=== PATIENT | male | born 1975 | race Caucasian/White ===

== ENCOUNTER → 2019-05-30 13:21 | Outpatient (CLI) | payer MEDICARE, MEDICAID, SELFPAY ==
--- NOTE | 2019-05-30 13:30 | MRI_ITS ---
STUDY: MRI LEFT FOREFOOT WITHOUT CONTRAST REASON FOR EXAM: Pain in the fifth metatarsal head, evaluate for bursitis versus neuroma. TECHNIQUE: Standardized fat and water weighted pulse sequences were obtained in all 3 orthogonal planes. COMPARISON: None. FINDINGS: There is mild arthrosis of the metatarsophalangeal joint of the hallux with small marginal osteophytes, mild chondral thinning and small subchondral cysts of the first metatarsal head (inversion recovery sagittal images 3, 6). Normal tibial and fibular sesamoids, with normal sesamoids-first metatarsal articulations. Normal interphalangeal joint of the hallux. Normal proximal and visualized distal phalanges of the great toe. Normal medial and lateral heads of the flexor hallucis brevis tendons. Normal flexor and extensor hallucis longus tendons. Normal second through fifth metatarsophalangeal (MTP) joints. Normal interphalangeal joints of the second through fifth toes. Normal proximal, middle and distal phalanges of the second through fifth toes. Normal first through fourth intermetatarsal spaces. Normal flexor and extensor tendons of the second through fifth toes. Normal metatarsals without stress fracture. Normal intrinsic muscles of the forefoot. There is a pressure lesion at the plantar aspect of the fifth metatarsophalangeal joint (T1 sagittal images 24, 25) without adventitial bursitis. MRI/Lower Ext/No Jt/w/o IMPRESSION: Pressure lesion at the plantar aspect of the fifth metatarsophalangeal joint without adventitial bursitis. Mild arthrosis of the first metatarsophalangeal joint. No demonstrated neuroma. Electronically Signed: Chris Raya MD at 15:02 EDT Tel , Service support ,
== END ==
PROVIDERS: Family Provider Internal Medicine; PCP Internal Medicine
DX: M71.572 Other bursitis, not elsewhere classified, left ankle and foot (principal); M79.672 Pain in left foot
CPT/HCPCS: 73718

== ENCOUNTER → 2020-07-06 10:43 | Outpatient (CLI) | payer MEDICARE, MEDICAID, SELFPAY ==
[2020-06-16 09:13] VITALS: BMI 42.5
[2020-07-06 12:14] LABS: Absolute Lymphocyte Count 2.42 X10^3/uL (0.83-4.51); Absolute Neutrophil Count 4.5 X10^3/uL (2.0-7.7); Basophil# 0.04 X10^3/uL; Basophil% 0.5 % (0-1); Eosinophil# 0.07 X10^3/uL; Eosinophils% 0.9 % (0-5); Hematocrit 43.7 % (40-54); Hemoglobin 14.8 g/dL (13.0-16.5); Lymphocyte # 2.42 X10^3/ul (4.0); Lymphocyte % 32.5 % (19-41); Mean Corp Hgb Conc 33.9 g/dL (32-36); Mean Corpuscular Hgb 28.5 pg (27.0-32.0); Mean Platelet Vol. 9.6 fl (6.2-12.0); Monocyte# 0.43 X10^3/uL; Monocyte% 5.8 % (0-10); NRBC Flagged by Analyzer 0 % (0-5); Neutrophil # 4.46 X10^3/uL (2.7-7.7); Platelet Count 268 K/mm3 (150-450); RBC Distribution Width CV 12.9 % (11.6-14.6); RBC Distribution Width SD 39.5 fl (35.1-43.9); White Blood Count 7.4 K/mm3 (4.4-11.0)
[2020-07-06 12:53] LABS: Hemoglobin A1c 8.5 % (3.8-5.6)
[2020-07-06 13:05] LABS: ALB/GLOB Ratio 0.9 RATIO (0.9-2.4); AST(SGOT) 50 U/L (15-37); Alanine Aminotransfer ALT/SGPT 92 U/L (16-61); Albumin, Serum 3.5 g/dL (3.2-5.0); Alkaline Phosphatase 101 U/L (45-117); Anion Gap 6 (5-15); BUN 12 mg/dL (7-18); BUN/Creat Ratio 11.3 RATIO (10-20); Calcium,Total 9.4 mg/dL (8.5-10.1); Chloride 103 mmol/L (98-107); Cholesterol 152 mg/dL (200); Creatinine, Serum 1.06 mg/dL (0.70-1.30); EST Glomerular Filtration Rate 81 mL/min (>60); Est Glom Filt Rate - Afr Amer 98 mL/min (>60); Globulin 4.1 g/dL (2.2-4.2); Glucose 202 mg/dL (74-106); High Density Lipoprotein 45 mg/dL; Potassium 3.9 mmol/L (3.5-5.1); Protein, Total 7.6 g/dL (6.4-8.2); Sodium Level 137 mmol/L (136-145); Thyroid Stim Hormone (TSH) 3.97 uIU/mL (0.358-3.74); Triglycerides 139 mg/dL; Very Low Density Lipoprotein 28 mg/dL (5-40)
== END ==
PROVIDERS: PCP Internal Medicine; Referring Provider Nurse Practitioner Family; Visit Provider Nurse Practitioner Family
DX: R53.82 Chronic fatigue, unspecified (principal); M62.81 Muscle weakness (generalized); R68.82 Decreased libido; E66.9 Obesity, unspecified
CPT/HCPCS: 36415; 80053; 80061; 83036; 84443; 85025; 86140; 86141

== ENCOUNTER 2023-05-03 13:56 | Emergency (ER) | payer MEDICARE, MEDICAID, SELFPAY ==
[2023-05-03 13:58] VITALS: BP 165/82; PULSE 98; RESP 18; TEMP 36.3; O2SAT 96; BMI 39.9
--- NOTE | 2023-05-03 14:39 | EKG12_ITS ---
Test Reason : CP Blood Pressure : / mmHG Vent. Rate : 094 BPM Atrial Rate : 094 BPM P-R Int : 166 ms QRS Dur : 142 ms QT Int : 402 ms P-R-T Axes : 034 -11 014 degrees QTc Int : 502 ms Normal sinus rhythm Right bundle branch block Inferior infarct , age undetermined Abnormal ECG Confirmed by SABRINA VELAZQUEZ, WALTER ([id number]), development editor CRISTO BONILLA ([id number]) on 05/04/2023 1:28:15 PM Referred By: AR/BRAVO Confirmed By:WALTER BENNETT MD
--- NOTE | 2023-05-03 14:39 | RAD_ITS ---
STUDY: X-RAY CHEST REASON FOR EXAM: Male, 48 years old. Chest pain TECHNIQUE: Single AP portable view of the chest. COMPARISON: None. FINDINGS: EKG electrodes are seen. The lungs are clear and expanded. There is no demonstrated pleural abnormality. Normal size heart. Normal mediastinum and jarek. Normal visualized pulmonary arteries. Normal visualized aortic arch and descending thoracic aorta. Normal visualized thoracic spine. Normal visualized ribs, clavicles, and shoulders. There is no demonstrated abnormality of the visualized soft tissue structures of the upper abdomen. RAD/Chest 1 View (Portable) IMPRESSION: Normal x-ray examination of the chest. Electronically Signed: Gibran Lawton MD at 14:54 EDT ,
[2023-05-03 14:51] LABS: Absolute Lymphocyte Count 2.44 X10^3/uL (0.83-4.51); Absolute Neutrophil Count 6.8 X10^3/uL (2.0-7.7); Basophil# 0.05 X10^3/uL; Basophil% 0.5 % (0-1); Eosinophil# 0.06 X10^3/uL; Eosinophils% 0.6 % (0-5); Hematocrit 45.1 % (40-54); Hemoglobin 15.9 g/dL (13.0-16.5); Lymphocyte # 2.44 X10^3/ul (0.83-4.51); Lymphocyte % 24.6 % (19-41); Mean Corp Hgb Conc 35.3 g/dL (32-36); Mean Corpuscular Hgb 29.8 pg (27.0-32.0); Mean Corpuscular Volume 84.6 fL (80-94); Mean Platelet Vol. 9.7 fl (6.2-12.0); Monocyte# 0.59 X10^3/uL; Monocyte% 5.9 % (0-10); NRBC Flagged by Analyzer 0 % (0-5); Neutrophil # 6.75 X10^3/uL (2.7-7.7); Neutrophil % 68.1 % (47-70); Platelet Count 323 K/mm3 (150-450); RBC Distribution Width CV 13.5 % (11.6-14.6); RBC Distribution Width SD 41.7 fl (35.1-43.9); Red Blood Count 5.33 M/mm3 (4.6-6.2); White Blood Count 9.9 K/mm3 (4.4-11.0)
[2023-05-03 15:18] LABS: Anion Gap 8 (5-15); BUN 17 mg/dL (7-18); Calcium,Total 9.1 mg/dL (8.5-10.1); Chloride 107 mmol/L (98-107); Creatinine, Serum 1.21 mg/dL (0.70-1.30); EST Glomerular Filtration Rate 69 mL/min (>60); Est Glom Filt Rate - Afr Amer 83 mL/min (>60); Estimated Creatinine Clearance 81.25 ml/min; Glucose 210 mg/dL (74-106); Potassium 3.5 mmol/L (3.5-5.1); Sodium Level 138 mmol/L (136-145); Troponin-I HS (w/2H Reflex) 4 pg/mL (3.0-78.0)
--- NOTE | 2023-05-03 15:19 | ED.VIS.CHEST ---
HPI History of Present Illness Chief Complaint: Chest Pain Informant: patient Onset/Context/Timing Onset: Today Activity at onset: sudden Timing: Continuous Quality: Positive for Burning Location: Left Chest and - (Left axilla) Worsened By: Movement of Arm and Movement of Torso Relieved By: - (Abducting left arm) Associated Symptoms: Positive for Acid Reflux; Negative for Nausea, Vomiting, Diaphoresis, Dyspnea, Cough, Fever, Lightheadedness or Palpitations Narrative Narrative: Patient presents with chest pain that began today. Patient states it began while he was driving. Patient states it started in his left axilla and radiates down his left arm. Patient describes it as burning and tingling. Patient states it is worse with certain movements. Patient states it is better when he is able to abduct his left arm. Patient states the pain has been constant since this morning. Patient also admits to some acid reflux. CVD Risk Factors: Positive for Diabetes; Negative for Hypertension, Hypercholesterolemia, Family History 1' </=55 or Smoking PE Risk Factors: Negative for Recent Travel/Surgery, Recent Immobilization, Prior DVT or PE, Cancer or OCP + Smoking + >/=35 PFSH PFSH Medical History (Updated 05/03/23 @ 18:[address] Nadeem Álvarez, DO) Acute bronchitis, unspecified Acute sinusitis, unspecified COVID-19 Diabetes type 2, controlled Encounter for screening for COVID-19 Home Medications azithromycin 250 mg tablet See Rx Instructions PO .COMPLEX #6 tabs 05/23/22 [Rx Last Taken Unknown] benzonatate 100 mg capsule 200 mg (2 x 100 mg) PO TID PRN cough #30 caps 05/23/22 [Rx Last Taken Unknown] bupropion HCl 150 mg 24 hr tablet, extended release 150 mg PO 05/23/22 [History Last Taken Unknown] fluoxetine 20 mg capsule 20 mg PO 05/23/22 [History Last Taken Unknown] insulin glargine 100 unit/mL (3 mL) subcutaneous pen (Lantus Solostar U-100 Insulin) 16 unit subcut DAILY 05/23/22 [History Last Taken Unknown] metformin 500 mg tablet,extended release 24 hr 1,000 mg PO DAILY 05/23/22 [History Last Taken Unknown] Allergy/AdvReac Type Severity Reaction Status Date / Time No Known Allergies Allergy Verified 05/03/23 13:58 Surgical History (Updated 05/03/23 @ 15:[address] Nadeem Álvarez DO) Hx of arthroscopy S/P excision of lipoma Social History Smoking Status: Never smoker ROS ROS ED Constitutional Constitutional ED: Denies chills or fever(s) Eyes Eyes: Denies blurry vision or change in vision ENT ENT ED: Denies rhinorrhea or sore throat Cardiovascular Cardiovascular: Reports chest pain; Denies palpitations Respiratory/Chest Respiratory/Chest: Denies cough or dyspnea Gastrointestinal Gastrointestinal: Denies abdominal pain, nausea or vomiting Genitourinary Genitourinary ED: Denies dysuria or hematuria Musculoskeletal Musculoskeletal: Denies back pain or neck pain Integumentary Denies abscess or rash Neurologic Neurologic: Denies headache(s) or weakness Allergic/Immunologic Allergic/Immunologic ED: Denies mouth swelling or urticaria EXAM Physical Exam Const Vital Signs: 05/03/23 13:58 05/03/23 14:42 05/03/23 16:00 Temperature 97.4 F L Temperature Source Temporal Pulse Rate 98 Respiratory Rate 18 18 Blood Pressure 165/82 H Blood Pressure Mean 109 Pulse Ox 96 Oxygen Delivery Method Room Air Room Air 05/03/23 18:00 Temperature Temperature Source Pulse Rate 91 Respiratory Rate 18 Blood Pressure Blood Pressure Mean Pulse Ox 96 Oxygen Delivery Method Room Air Positive well nourished, well developed and obese General Appearance ED: well developed and NAD Nutritional Appearance: obese HEENT normocephalic and atraumatic Eyes PERRL and EOMs intact bilaterally Neck supple and no JVD Chest Wall Chest Narrative: There is mild tenderness palpation of the left axilla. There is no edema or ecchymosis. There is no bony crepitance or step-off. There is no subcutaneous emphysema noted. Resp normal respiratory effort and clear to auscultation bilaterally Effort and Inspection: Negative for respiratory distress Cardio regular rate, regular rhythm and no murmurs GI normal to inspection, nondistended, normoactive bowel sounds, soft to palpation, non-tender and non-distended Extremity normal to inspection General Extremety ED: Negative for edema or tenderness General Extremity: Negative for edema Neuro oriented x3, CN's II-XII intact bilaterally and no sensory deficits noted Sensorium / Orientation: awake and alert Motor Exam: strength 5/5 throughout Psych mental status grossly normal Heart Score History: Slightly/Non-Suspicious ECG: Nonspecific Repolarization Age: >45 - <65 years Risk Factors: 1 or 2 Risk Factors Score: 3 MDM MDM MDM Narrative Medical decision making narrative: Differential diagnosis includes cardiac dysrhythmia, cardiac ischemia, pulmonary embolism, musculoskeletal pain, anxiety, and peripheral neuropathy. EKG will be obtained to assess for cardiac dysrhythmia and cardiac ischemia. Chest x-ray will be obtained to assess for pneumonia and pneumothorax. D-dimer will be obtained to assess for pulmonary embolism. CBC will be obtained to assess for anemia and leukocytosis. Basic metabolic profile will be obtained to assess for electrolyte abnormality and renal function. High-sensitivity troponin will be obtained to assess for cardiac ischemia. 2-hour repeat high-sensitivity troponin will be obtained to assess for ongoing cardiac ischemia. Lab Data Attestation: I reviewed the patient's lab results. Lab results narrative: CBC was reviewed and was within normal limits. Basic metabolic profile was reviewed and was within normal limits except for an elevated glucose of 210. Initial high-sensitivity troponin was reviewed and was normal at 4. 2-hour repeat high-sensitivity troponin was reviewed and was normal at 4. D-dimer was reviewed and was less than 0.27. Labs: Laboratory Results - last 24 hr 05/03/23 05/03/23 14:11 17:27 WBC 9.9 RBC 5.33 Hgb 15.9 Hct 45.1 MCV 84.6 MCH 29.8 MCHC 35.3 RDW Std Deviation 41.7 RDW Coeff of Marquez 13.5 Plt Count 323 MPV 9.7 Immature Gran % (Auto) 0.300 Neut % (Auto) 68.1 Lymph % (Auto) 24.6 Gordon % (Auto) 5.9 Eos % (Auto) 0.6 Baso % (Auto) 0.5 Absolute Neuts (auto) 6.8 Absolute Lymphs (auto) 2.44 Nucleated RBC % 0 D-Dimer Quant (PE/DVT) < 0.27 L Sodium 138 Potassium 3.5 Chloride 107 Carbon Dioxide 23.0 Anion Gap 8 BUN 17 Creatinine 1.21 Estim Creat Clear Calc 81.25 Est GFR (MDRD) Af Amer 83 Est GFR (MDRD) Non-Af 69 BUN/Creatinine Ratio 14.0 Glucose 210 H Calcium 9.1 Troponin I High Sens 4 4 Radiography Diagnostic Testing: Clinical Impression(s) from Imaging Studies Chest X-Ray 05/03/23 14:39 IMPRESSION: Normal x-ray examination of the chest. Electronically Signed: Gibran Lawton MD at 14:54 EDT , Portable 1 view chest x-ray was obtained. On my independent interpretation, lung tracy are clear. There is normal cardiac silhouette. Bony thorax is normal. There is no acute process noted. Radiologist also interpreted the x-ray and agrees. EKG Initial EKG: Attestation: I personally reviewed and interpreted this EKG as follows: Interpretation: Sinus Rhythm (94) and No Acute Injury Pattern Comments: EKG was obtained. On my independent interpretation, it showed a normal sinus rhythm with a rate of 94. PA interval was within normal limits at 166 ms. QRS interval was slightly prolonged at 142 ms. QTc interval was slightly prolonged at 502 ms.. There is borderline left axis deviation at -11. There are no acute ST or T wave changes. Prior EKG tracings: not available for review Prior: No Prior Treatment and Re-Evaluation :: Patient was feeling better on reevaluation. Patient was advised of his findings. Patient was advised that this could be musculoskeletal in etiology. Patient was instructed to follow-up with his primary care physician in 5 to 7 days for further evaluation. Patient understood and was agreeable with the plan. All questions were answered. Discharge Plan Triage Chief Complaint: Chest Pain ED Provider: Nadeem Álvarez Dx/Rx/DC Orders Clinical Impression: Diabetes type 2, controlled, Chest pain Instructions: ED Chest Pain, Uncertain Cause Prescriptions: No Action metformin 500 mg tablet extended release 24 hr 1,000 mg PO DAILY bupropion HCl 150 mg tablet extended release 24 hr 150 mg PO fluoxetine 20 mg capsule 20 mg PO insulin glargine [Lantus Solostar U-100 Insulin] 100 unit/mL (3 mL) insulin pen 16 unit subcut DAILY azithromycin 250 mg tablet See Rx Instructions PO .COMPLEX Qty: 6 0RF Rx Instructions: take 500 mg today (day 1), then 250 mg for 4 days (days 2-5) PO benzonatate 100 mg capsule 200 mg PO TID PRN (Reason: cough) Qty: 30 0RF Primary Care Provider: DEONTE FELIX Referrals: Pauline Nix MD [Med Staff - [facility] [employer]] - 5-7 Days DEONTE FELIX CRNP [Primary Care Provider] - 5-7 Days Disposition Disposition: Home, Self Care
[2023-05-03 16:00] VITALS: RESP 18
[2023-05-03 16:16] LABS: D-Dimer Quantitative (DVT/PE) < 0.27 FEU/ug/m (0.27-0.49)
[2023-05-03 16:45] LABS: Reflex Troponin-HS? (from REC) Y
[2023-05-03 17:58] LABS: Troponin-I HS 4 pg/mL (3.0-78.0)
[2023-05-03 18:00] VITALS: PULSE 91; RESP 18; O2SAT 96
== END 2023-05-03 18:51 | disposition home or self-care (01) ==
PROVIDERS: Emergency Provider Emergency Medicine; PCP Nurse Practitioner; Visit Provider Emergency Medicine
DX: R07.9 Chest pain, unspecified (principal); E11.9 Type 2 diabetes mellitus without complications; Z79.4 Long term (current) use of insulin; Z79.84 Long term (current) use of oral hypoglycemic drugs
CPT/HCPCS: 71045; 80048; 84484; 85025; 85379; 93005; 99284; A4216

== ENCOUNTER → 2023-09-19 | Outpatient (CLI) | payer MEDICARE, MEDICAID, SELFPAY ==
--- NOTE | 2023-09-19 08:55 | MRI_ITS ---
STUDY: MRI RIGHT SHOULDER REASON FOR EXAM: Male, 48 years old. Rule out cuff tear, injury with dog, pain, weakness. TECHNIQUE: Standardized fat and water weighted pulse sequences were obtained in all 3 orthogonal planes. COMPARISON: Right shoulder radiographs dated 08/28/2023. FINDINGS: There is mild supraspinatus and subscapularis tendinosis. There is a 5 mm focus of low signal along the bursal surface of the distal infraspinatus tendon (coronal T2 series 5 image 10), compatible with calcification seen with calcific tendinitis. Normal teres minor tendon. Normal supraspinatus muscle. Normal infraspinatus muscle. Normal subscapularis muscle. Normal teres minor muscle. There is a tear of the superior glenoid labrum (coronal T2 series 5 images 12-14). Normal glenohumeral articulation. Normal humeral head and visualized proximal humerus. Normal intracapsular long biceps tendon. Normal rotator interval. There is hypertrophic acromioclavicular arthrosis, with inferior osteophyte formation, with mild effacement of the supraspinatus myotendinous junction (coronal T2 series 5 images 17-19). There is a Type II morphology (curved), with a neutral orientation. There is no subacromial-subdeltoid bursal fluid. Normal visualized coracohumeral and coracoacromial ligaments. Normal quadrilateral space. Normal axillary space. Normal deltoid muscle. Normal trapezius muscle. MRI/Upper Ext Joint Only(Routine) IMPRESSION: Mild supraspinatus and subscapularis tendinosis. Calcific tendinitis of the distal infraspinatus tendon. Hypertrophic acromioclavicular arthrosis, with inferior osteophyte formation, with mild effacement of the supraspinatus myotendinous junction. Superior glenoid labral tear. Electronically Signed: Jamey Fitzpatrick MD at 12:13 EST ,
== END | disposition home or self-care (01) ==
LOC: MRI 08:07
PROVIDERS: PCP Nurse Practitioner; Referring Provider Orthopaedic Surgery Sports Medicine; Visit Provider Orthopaedic Surgery Sports Medicine
DX: M25.511 Pain in right shoulder (principal)
CPT/HCPCS: 73221

== ENCOUNTER 2023-10-12 10:28 | Emergency (ER) | payer MEDICARE, MEDICAID, SELFPAY ==
[2023-10-12 10:29] VITALS: BP 157/96; PULSE 84; RESP 16; TEMP 35.9; O2SAT 98; BMI 38.5
--- NOTE | 2023-10-12 10:46 | ED.RN ---
PT REPORTS PAIN TO BALL OF LEFT FOOT. WARM, REDDENED, TENDER TO TOUCH.
--- NOTE | 2023-10-12 10:53 | RAD_ITS ---
STUDY: X-RAY - LEFT FOOT CLINICAL: Male, 48 years old. Injury/Pain. TECHNIQUE: 3 views of the left foot. COMPARISON: None. FINDINGS: Normal talus, calcaneus, and tarsal bones. Normal visualized subtalar, talonavicular, calcaneocuboid, tarsal and tarsometatarsal articulations. Normal metatarsi. Normal metatarsophalangeal joint of the great toe. Normal tibial and fibular sesamoid bones. Normal interphalangeal joint of the great toe. Normal phalanges of the great toe. Normal second through fifth metatarsophalangeal joints. Normal interphalangeal joints and phalanges of the lesser toes. There is a 7 mm smooth ossified structure along the expected course of the distal Achilles tendon, probably the sequelae of an old avulsion injury. The soft tissue structures are otherwise unremarkable. There is no demonstrated acute fracture. RAD/Foot min 3 Views IMPRESSION: No acute fracture. Electronically Signed: Jamey Fitzpatrick MD at 11:14 EST ,
--- NOTE | 2023-10-12 11:27 | EDS_ITS ---
HPI History of Present Illness Chief Complaint: Lower Extremity Injury Detail of Chief Complaint: Pain plantar medial aspect of the foot. Informant: patient Onset/Context/Timing Onset: Today Context: Sudden Onset Timing: Continuous Quality of Pain: Aching Location: In the proximity of the first MTP joint. Current Severity: Mild Maximum Severity: Moderate Worsened by: Palpation and walking Relieved by: Elevation and rest Associated Symptoms Associated Symptoms: Negative for Parasthesia, Weakness or Loss of Funtion Narrative Narrative: Patient is a 48-year-old male with history of type 2 diabetes who presents with atraumatic left foot pain that he localizes over the first metatarsal/first MTP joint. He denies history of gout or pseudogout. He is not on a thiazide diuretic. He denies fever, chills night sweats. He denies any known injury. 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 He reports his diabetes under good control with an A1c of approximately 6. He denies paresthesia, anesthesia or motor weakness. He has not noted any redness or swelling. He denies symptoms of claudication. Prior similar symptoms: No Recent Illness/Hospitalization: No PFSH PFS Medical History Acute bronchitis, unspecified Acute sinusitis, unspecified Arthrosis of right acromioclavicular joint COVID-19 Diabetes type 2, controlled Encounter for screening for COVID-19 Impingement of right shoulder Right shoulder pain SLAP lesion of right shoulder Home Medications bupropion HCl 150 mg 24 hr tablet, extended release 150 mg PO 05/23/22 [History Last Taken Unknown] insulin glargine 100 unit/mL (3 mL) subcutaneous pen (Lantus Solostar U-100 Insulin) 16 unit subcut DAILY 05/23/22 [History Last Taken Unknown] metformin 500 mg tablet,extended release 24 hr 1,000 mg PO DAILY 05/23/22 [History Last Taken Unknown] semaglutide 1 mg/dose (4 mg/3 mL) subcutaneous pen injector (Ozempic) 1 mg subcut QWEEK 08/28/23 [History Last Taken Unknown] naproxen 500 mg tablet 500 mg PO BID #14 tabs 10/12/23 [Rx Last Taken Unknown] Allergy/AdvReac Type Severity Reaction Status Date / Time No Known Allergies Allergy Verified 10/12/23 10:29 Surgical History Hx of arthroscopy S/P excision of lipoma Social History Smoking Status: Never smoker ROS ROS ED Constitutional Constitutional ED: Denies chills, fever(s), subjective, sweats or weight loss Musculoskeletal Musculoskeletal: Denies arthralgias or myalgias Integumentary Denies abscess, Abrasions or rash Neurologic Neurologic: Denies paresthesias or weakness Hematologic/Lymphatic Hematologic/Lymphatic: Denies easy bleeding or easy bruising EXAM Physical Exam Const Vital Signs: 10/12/23 10:29 Temperature 96.7 F L Temperature Source Temporal Pulse Rate 84 Respiratory Rate 16 Blood Pressure 157/96 H Blood Pressure Mean 116 Pulse Ox 98 Oxygen Delivery Method Room Air Positive well nourished, well developed and obese General Appearance ED: well developed and NAD Nutritional Appearance: obese HEENT Reports moist mucous membranes normocephalic and atraumatic Eyes PERRL Eyes Narrative: Extract muscle intact. Sclera is anicteric. Resp normal respiratory effort Cardio regular rate and regular rhythm Extremity normal to inspection and full ROM Extremity Narrative: With passive plantar and dorsiflexion of the left great toe he complains of pain on the plantar surface. There is pain outpatient over the plantar surface. Th ere is pain from the proximity of the MTP joint of the left great toe to the calcaneus. There is no point tenderness of the calcaneus. There is no pain ovation over the lateral or medial malleolus. DP pulses palpable. There is no evidence of vascular compromise. There is no bruising noted. There is no erythema, warmth or induration. There is minimal discomfort with movement of the great toe passively. General Extremety ED: Yes weight-bearing difficulty General Extremity: weight-bearing difficulty Neuro oriented x3 and CN's II-XII intact bilaterally Sensorium / Orientation: alert Psych mental status grossly normal Skin no wounds Lesions: no lesions Rashes: no rashes MDM MDM MDM Narrative Medical decision making narrative: Differential diagnosis would include plantar fasciitis since he does have increased pain with forced passive dorsiflexion. Also need to consider crystal induced arthritis. This may represent a contusion since he is a online health and fitness coach and may have injured it not realized it. Will obtain x-ray to evaluate for any bony abnormality. Radiography Chest X-Ray - ED: Read by ED Physician (Three-view x-ray of the foot was obtained and independently reviewed interpreted by me as negative. There is no soft tissue swelling. There is no abnormality of the MTP joint. There is no evidence of fracture.) Diagnostic Testing: Clinical Impression(s) from Imaging Studies Foot X-Ray 10/12/23 10:53 IMPRESSION: No acute fracture. Electronically Signed: Jamey Fitzpatrick MD at 11:14 EST , Management Discussion w/another healthcare provider: [employer] (Spoke with Dr. Felix Faust on-call podiatry. Plan is walking boot and short course of NSAIDs.) Discharge Plan Triage Chief Complaint: Lower Extremity Injury ED Provider: Wesley Yeboah Dx/Rx/DC Orders Clinical Impression: Plantar fasciitis of left foot, Diabetes type 2, controlled, Elevated blood- pressure reading without diagnosis of hypertension Instructions: ED Hypertension, To Be Confirmed, ED Plantar Fasciitis Prescriptions: New naproxen 500 mg tablet 500 mg PO BID Qty: 14 0RF No Action metformin 500 mg tablet extended release 24 hr 1,000 mg PO DAILY bupropion HCl 150 mg tablet extended release 24 hr 150 mg PO insulin glargine [Lantus Solostar U-100 Insulin] 100 unit/mL (3 mL) insulin pen 16 unit subcut DAILY Ozempic 1 mg/dose (4 mg/3 mL) pen injector 1 mg subcut QWEEK Primary Care Provider: DEONTE FELIX Referrals: Finn Faust DPM [Med Staff - Active Staff] - As soon as possible DEONTE FELIX CRNP [Primary Care Provider] - Disposition Disposition: Home, Self Care
== END 2023-10-12 13:56 | disposition home or self-care (01) ==
PROVIDERS: Emergency Provider Emergency Medicine; PCP Nurse Practitioner; Visit Provider Emergency Medicine
DX: M72.2 Plantar fascial fibromatosis (principal); E11.9 Type 2 diabetes mellitus without complications; Z79.4 Long term (current) use of insulin; R03.0 Elevated blood-pressure reading, without diagnosis of hypertension; Z79.85 Long-term (current) use of injectable non-insulin antidiabetic drugs
CPT/HCPCS: 73630; 99283

== ENCOUNTER 2023-11-01 08:44 | Emergency (ER) | payer MEDICARE, MEDICAID, SELFPAY ==
[2023-11-01 08:44] VITALS: BP 161/92; PULSE 95; RESP 16; TEMP 36.6; O2SAT 97; BMI 40.4
--- NOTE | 2023-11-01 09:06 | CT_ITS ---
STUDY: CT ABDOMEN AND PELVIS WITH CONTRAST REASON FOR EXAM: Male, 48 years old. LLQ Pain RADIATION DOSAGE (If Supplied By Facility): CTDIvol = ( 17.06 ) mGy, DLP = ( 1457.68 ) mGycm TECHNIQUE: IV 100mL Isovue-300 was administered. Transaxial images were obtained from the dome of the diaphragm to the symphysis pubis in the arterial, nephrographic and excretory phases. Multiplanar coronal and sagittal images were reformatted. Individualized Dose Optimization Techniques Were Used For This CT. COMPARISON: No relevant prior comparison study available FINDINGS: The visualized lung bases are unremarkable. The visualized portions of the heart are within normal limits. Mild hepatic steatosis. No focal lesion is seen. Normal gallbladder and extrahepatic biliary system. Normal spleen. Normal pancreas. Normal bilateral adrenal glands. Normal visualized stomach. Normal small intestine. Fecal retention. Sigmoid diverticulosis without evidence of acute diverticulitis. The appendix is visualized and appears normal. Normal abdominal aorta. No retroperitoneal adenopathy. Normal right kidney. Normal left kidney. Normal urinary bladder. Diastases of the anterior rectus muscles without definite hernia. Mild degenerative changes of the spine. CT/Abdomen/Pelvis W IV Cont ONLY IMPRESSION: 1. Diverticulosis of the sigmoid colon without evidence of acute diverticulitis. 2. Otherwise no focal acute inflammatory process. Electronically Signed: Robert Plasencia MD at 10:42 EST ,
--- NOTE | 2023-11-01 09:07 | EDS_ITS ---
HPI History of Present Illness Chief Complaint: Abd Pain Informant: patient Narrative Narrative: 48-year-old male presenting to the emergency room with chief complaint of abdominal pain. Patient states a month ago began to have some discomfort in the left lower quadrant. 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 He states that he is taken some time off from wrestling and seems to continue to. He notes a history of diverticulitis but states its never gone on this long. He notes some radiation down towards his left testicle. He denies any swelling masses/bulges in the scrotum. Or abdominal wall. He denies any rashes. No fevers. He does note some constipation. Discomfort seems to be worse with stretching and movement. No prior history of kidney stones. He states that his urine occasionally has an abnormal smell to it. [facility] Medical History Acute bronchitis, unspecified Acute sinusitis, unspecified Arthrosis of right acromioclavicular joint COVID-19 Diabetes type 2, controlled Encounter for screening for COVID-19 Impingement of right shoulder Right shoulder pain SLAP lesion of right shoulder Home Medications bupropion HCl 150 mg 24 hr tablet, extended release 150 mg PO 05/23/22 [History Last Taken Unknown] insulin glargine 100 unit/mL (3 mL) subcutaneous pen (Lantus Solostar U-100 Insulin) 16 unit subcut DAILY 05/23/22 [History Last Taken Unknown] metformin 500 mg tablet,extended release 24 hr 1,000 mg PO DAILY 05/23/22 [History Last Taken Unknown] semaglutide 1 mg/dose (4 mg/3 mL) subcutaneous pen injector (Ozempic) 1 mg subcut QWEEK 08/28/23 [History Last Taken Unknown] naproxen 500 mg tablet 500 mg PO BID #14 tabs 10/12/23 [Rx Last Taken Unknown] Allergy/AdvReac Type Severity Reaction Status Date / Time No Known Allergies Allergy Verified 11/01/23 08:47 Surgical History Hx of arthroscopy S/P excision of lipoma Social History Smoking Status: Never smoker ROS ROS ED Constitutional Constitutional ED: Denies chills, fever(s) or weight loss Eyes Eyes: Denies change in vision or diplopia ENT ENT ED: Denies ear pain, rhinorrhea or sore throat Cardiovascular Cardiovascular: Denies chest pain, orthopnea, palpitations or racing heartbeat Respiratory/Chest Respiratory/Chest: Denies cough, dyspnea or orthopnea Gastrointestinal Gastrointestinal: Reports abdominal pain and constipation; Denies diarrhea, nausea or vomiting Genitourinary Genitourinary ED: Reports other Details: Left testicular ache. No scrotal swelling or tenderness. ; Denies dysuria, hematuria or urinary frequency Musculoskeletal Musculoskeletal: Denies arthralgias or myalgias Integumentary Denies abscess or rash Neurologic Neurologic: Denies headache(s) or weakness Psychiatric Psychiatric: Denies anxiety, depression, suicidal ideation or suicidal thoughts Endocrine Endocrinology: Denies polydipsia, polyphagia or polyuria Allergic/Immunologic Allergic/Immunologic ED: Denies mouth swelling, tongue swelling or urticaria EXAM Physical Exam Const Vital Signs: 11/01/23 08:44 11/01/23 12:57 Temperature 97.9 F Temperature Source Temporal Pulse Rate 95 88 Respiratory Rate 16 14 Blood Pressure 161/92 H 131/83 H Blood Pressure Mean 115 99 Pulse Ox 97 96 Oxygen Delivery Method Room Air Positive well nourished and well developed General Appearance ED: well developed HEENT Reports normocephalic, head/scalp atraumatic and moist mucous membranes Eyes PERRL and EOMs intact bilaterally Neck no lymphadenopathy, supple and no JVD Resp normal respiratory effort and clear to auscultation bilaterally Cardio regular rate, regular rhythm and no murmurs GI GI Narrative: Patient has tenderness to palpation the left lower quadrant just above the inguinal ligament on the left. I do not appreciate mass or abdominal wall defect. There is no rash. Inspection: Negative for abdominal distention Auscultation: normoactive bowel sounds Palpation: soft and tender LLQ; Negative for guarding or rebound tenderness present Narrative: Genitalia exam performed in the presence of male nurse (Bartolo Keating). I do not appreciate any testicular tenderness swelling or masses. I do not appreciate hernia with Valsalva. No abdominal wall hernia felt. No rashes. Back/Spine no CVA tenderness and normal ROM Extremity normal to inspection General Extremety ED: Negative for edema General Extremity: Negative for edema Neuro oriented x3 and CN's II-XII intact bilaterally Sensorium / Orientation: alert Motor Exam: strength 5/5 throughout Psych mental status grossly normal Mood & Affect: Negative for depressed or tearful Skin no rashes or lesions noted and no wounds MDM MDM MDM Narrative Medical decision making narrative: Basic blood work stink showed a white count of 7.9 hemoglobin 15.2. Creatinine 1.13 and a glucose of 274. Urinalysis shows no overt infection. Out of concern for diverticular disease or abdominal wall hematoma a CT of the abdomen pelvis was ordered. This demonstrated diverticulosis but no obvious obstructive uropathy noted acute diverticulitis/colitis. No intra-abdominal abscess no abdominal wall hematoma and no obvious hernia which supports the physical exam. Because of the testicular discomfort a testicular ultrasound was obtained. This demonstrates slightly increased flow to the left epididymis. He was not really tender on examination but there is a possibility that this is a lingering infection. However I still would feel that abdominal wall strain would be higher on the differential given how tender he is just above the inguinal ligament on the left. Patient was advised of the above findings. Recommend primary care and possibly surgical follow-up. He notes understanding. Anti- inflammatories for discomfort. Return if worsening or concerns History & Record Review Discussion w/independent historian: Patient Lab Data Attestation: I reviewed the patient's lab results. Labs: Laboratory Results - last 24 hr 11/01/23 11/01/23 09:05 09:12 WBC 7.9 RBC 5.39 Hgb 15.2 Hct 44.8 MCV 83.1 MCH 28.2 MCHC 33.9 RDW Std Deviation 38.5 RDW Coeff of Marquez 12.8 Plt Count 276 MPV 9.5 Immature Gran % (Auto) 0.100 Neut % (Auto) 67.5 Lymph % (Auto) 23.6 [place] % (Auto) 7.6 Eos % (Auto) 0.8 Baso % (Auto) 0.4 Absolute Neuts (auto) 5.3 Absolute Lymphs (auto) 1.87 Nucleated RBC % 0 Sodium 135 L Potassium 3.8 Chloride 107 Carbon Dioxide 27.0 Anion Gap 1 L BUN 15 Creatinine 1.13 Estim Creat Clear Calc 112.99 Est GFR (MDRD) Af Amer 90 Est GFR (MDRD) Non-Af 74 BUN/Creatinine Ratio 13.3 Glucose 274 H Calcium 9.4 Urine Color Yellow Urine Clarity Clear Urine pH 6.0 Ur Specific [place] 1.010 Urine Protein 15 H Urine Glucose (UA) 1000 H Urine Ketones Negative Urine Occult Blood Negative Urine Nitrite Negative Urine Bilirubin Negative Urine Urobilinogen Normal Ur Leukocyte Esterase Negative Urine RBC 0 SEEN Urine WBC 0 SEEN Ur Squamous Epith Cells 0 SEEN Urine Bacteria 0 SEEN Urine Mucus 0 SEEN Radiography Diagnostic Testing: Clinical Impression(s) from Imaging Studies Abdomen/Pelvis CT 11/01/23 09:06 IMPRESSION: 1. Diverticulosis of the sigmoid colon without evidence of acute diverticulitis. 2. Otherwise no focal acute inflammatory process. Electronically Signed: Robert Plasencia MD at 10:42 EST , Testicular Ultrasound 11/01/23 11:02 IMPRESSION: 1. No evidence of testicular torsion at the time this examination was performed. 2. Slightly increased flow to the left epididymis compared to the right side which may reflect epididymitis. 3. Mild to moderate bilateral hydroceles. 4. Left varicocele. Electronically Signed: Robert Plasencia MD at 12:23 EST , Discharge Plan Triage Chief Complaint: Abd Pain ED Provider: Valeriano Chavis Dx/Rx/DC Orders Clinical Impression: Abdominal pain, Strain of abdominal wall, Epididymitis Instructions: ED Epididymitis, ED Muscle Strain, Abdomen Prescriptions: No Action metformin 500 mg tablet extended release 24 hr 1,000 mg PO DAILY bupropion HCl 150 mg tablet extended release 24 hr 150 mg PO insulin glargine [Lantus Solostar U-100 Insulin] 100 unit/mL (3 mL) insulin pen 16 unit subcut DAILY Ozempic 1 mg/dose (4 mg/3 mL) pen injector 1 mg subcut QWEEK naproxen 500 mg tablet 500 mg PO BID Qty: 14 0RF Primary Care Provider: DEONTE FELIX Referrals: Renee Quigley MD [Med Staff - Active Staff] - As soon as possible (for surgical evaluation of left abdominal pain ) DEONTE FELIX CRNP [Primary Care Provider] - As soon as possible Disposition Disposition: Home, Self Care Discharge Date/Time: 11/01/23 12:57
[2023-11-01 09:17] LABS: Bacteria 0 SEEN /hpf (None Seen); Mucous, Urine 0 SEEN /hpf (<or=2+); Red Blood Cells-Urine 0 SEEN /hpf (0-5); Squamous Epithelial Cells - UA 0 SEEN /hpf (0-5); White Blood Cells 0 SEEN /hpf (0-5)
[2023-11-01 09:21] LABS: Absolute Lymphocyte Count 1.87 X10^3/uL (0.83-4.51); Absolute Neutrophil Count 5.3 X10^3/uL (2.0-7.7); Basophil# 0.03 X10^3/uL; Basophil% 0.4 % (0-1); Eosinophil# 0.06 X10^3/uL; Eosinophils% 0.8 % (0-5); Hematocrit 44.8 % (40-54); Hemoglobin 15.2 g/dL (13.0-16.5); Lymphocyte # 1.87 X10^3/ul (0.83-4.51); Lymphocyte % 23.6 % (19-41); Mean Corp Hgb Conc 33.9 g/dL (32-36); Mean Corpuscular Hgb 28.2 pg (27.0-32.0); Mean Corpuscular Volume 83.1 fL (80-94); Mean Platelet Vol. 9.5 fl (6.2-12.0); Monocyte% 7.6 % (0-10); NRBC Flagged by Analyzer 0 % (0-5); Neutrophil # 5.34 X10^3/uL (2.7-7.7); Neutrophil % 67.5 % (47-70); Platelet Count 276 K/mm3 (150-450); RBC Distribution Width CV 12.8 % (11.6-14.6); RBC Distribution Width SD 38.5 fl (35.1-43.9); Red Blood Count 5.39 M/mm3 (4.6-6.2); White Blood Count 7.9 K/mm3 (4.4-11.0)
[2023-11-01 09:23] LABS: Color, Urine Yellow (Yellow); Glucose, Dipstick 1000 mg/dl (Normal); Ketone-Dipstick Negative (Negative); Leukocyte Esterase-Dipstick Negative /ul (Negative); Nitrite-Dipstick Negative (Negative); Occult Blood-Urine Negative /ul (Negative); Protein-Dipstick 15 mg/dl (Negative); Urine Bilirubin Dipstick Negative (Negative); Urine Clarity Clear (Clear); Urine Urobilinogen Normal (Normal)
[2023-11-01 09:28] LABS: Anion Gap 1 (5-15); BUN 15 mg/dL (7-18); BUN/Creat Ratio 13.3 RATIO (10-20); Calcium,Total 9.4 mg/dL (8.5-10.1); Chloride 107 mmol/L (98-107); Creatinine, Serum 1.13 mg/dL (0.70-1.30); EST Glomerular Filtration Rate 74 mL/min (>60); Est Glom Filt Rate - Afr Amer 90 mL/min (>60); Estimated Creatinine Clearance 112.99 ml/min; Glucose 274 mg/dL (74-106); Potassium 3.8 mmol/L (3.5-5.1); Sodium Level 135 mmol/L (136-145)
--- OUTSIDE RECORDS SUMMARY | 2023-11-01 09:42 | XMS RPT_ITS | CCD ---
Author Name Unknown Address [address] [place] [address] Organization [facility] Care Team Providers Care Chiller Technician Name Role Phone TERESO COOPER Unavailable Unavailable Marissa Vital Unavailable Unavailable [facility] Unavailable Unavailable Deborah Painting Unavailable Unavailable Deborah Painting Unavailable Unavailable NO REFERRING Unavailable Unavailable Deborah aPinting Unavailable Unavailable MARISSA ARTIS Attending Unavailable RENU SHARPE Primary Care Unavailable FRANCI ELIAS Attending Unavailable RENU SHARPE Primary Care Unavailable Renu Sharpe Primary Care Provider Medications Completed/Discontinued Medications Medication Drug Class(es) Dates Sig (Normalized) Sig (Original) anastrozole 1 mg oral tablet (1 source) Aromatase Inhibitor Start: 06-21-2019 take 1 tablet by mouth two times weekly anastrozole (ARIMIDEX) 1 mg tablet Take 1 tablet by mouth two times a week. 10 tablet 1 06/21/2019 Active Problems Active Problems Problem Classification Problem Date Documented Date Episodic/Chronic Abdominal pain (1 source) Pelvic and perineal pain; Translations: [Pelvic pain in male] Onset: 10-10-2022 Episodic Anxiety disorders (1 source) Posttraumatic stress disorder; Translations: [Post-traumatic stress disorder, unspecified] Onset: 02-26-2018 02-26-2018 Chronic Miscellaneous mental health disorders (1 source) Nightmares associated with chronic post-traumatic stress disorder; Translations: [Nightmare disorder] Onset: 02-26-2018 02-26-2018 Chronic Mood disorders (1 source) Recurrent major depression in partial remission; Translations: [Major depressive disorder, recurrent, in partial remission] Onset: 02-26-2018 02-26-2018 Chronic Other endocrine disorders (1 source) Male hypogonadism; Translations: [Testicular hypofunction] Onset: 06-19-2017 06-19-2017 Chronic Other nutritional; endocrine; and metabolic disorders (1 source) Morbid (severe) obesity due to excess calories; Translations: [MORBID SEVERE OBES D/T E] Onset: 03-14-2017 Chronic Residual codes; unclassified (1 source) Obstructive sleep apnea syndrome; Translations: [Obstructive sleep apnea (adult) (pediatric)] Onset: 02-26-2018 08-31-2020 Chronic Sprains and strains (1 source) Strain of muscle, fascia and tendon of lower back, initial encounter; Translations: [Strain of lumbar region, initial encounter] Onset: 10-10-2022 Episodic Unclassified (1 source) Obstructive sleep apnea (adult) (pediatric); Translations: [Obstructive sleep apnea (adult) (pediatric)] Onset: 02-26-2018 Chronic Past or Other Problems Problem Classification Problem Date Documented Da te Episodic/Chronic Diabetes mellitus without complication (1 source) Hyperglycemia, unspecified; Translations: [Hyperglycemia] Onset: 01-17-2022 Episodic Other and unspecified benign neoplasm (1 source) Benign lipomatous neoplasm, unspecified; Translations: [BENIGN LIPOMATOUS NEOPLA] Onset: 03-14-2017 Episodic Other and unspecified benign neoplasm (1 source) Lipoma of trunk; Translations: [Benign lipomatous neoplasm of skin and subcutaneous tissue of trunk] Onset: 03-21-2017 03-21-2017 Episodic Other skin disorders (2 sources) Localized swelling, mass and lump, trunk; Translations: [LOCALIZD SWELLING MASS] Onset: 03-14-2017 Episodic Syncope (1 source) Near syncope; Translations: [Syncope and collapse] Onset: 08-02-2010 08-02-2010 Episodic Results Test Name Value Interpretation Reference Range Facil ity Encounters Encounter Date Encounter Type Care Provider Facility Start: 10-28-2022 End: 10-28-2022 Subsequent hospital visit by physician [facility] Procedures Date Procedure Procedure Detail Performing Clinician Start: 03-14-2017 EXC BACK TOMI DEEP 5 CM/> Deborah Painting Plan of Treatment Date Care Activity Detail Author Start: 10-10-2025 DIABETES SCREEN DIABETES SCREEN [facility] Start: 06-09-2022 Influenza vaccination INFLUENZA (#1) [facility] Start: 06-05-2022 LIPID SCREEN LIPID SCREEN [facility] Start: 2022 COLOGUARD (FIT-DNA) COLOGUARD (FIT-D NA) [facility] Start: 2022 Colonoscopy COLONOSCOPY [facility] Start: 2022 COLORECTAL CANCER SCREENING COLORECTAL CANCER SCREENING [facility] Start: [address] COLONOGRAPHY [facility] Start: 2022 FECAL OCCULT BLOOD FECAL OCCULT BLOO D [facility] Start: 2022 SIGMOIDOSCOPY SIGMOIDOSCOPY [facility] Start: 1996 Urine microalbumin profile DTAP,TDAP ,TD (1 - Tdap) [facility] Start: 1995 HEPATITIS C SCREENING HEPATITIS C SC REENING [facility] Start: 1995 HIV SCREENING HIV SCREENING [facility] Start: 1977 COVID-19 VACCINE (#1) COVID-19 VACCI NE (#1) [facility] Start: 1977 HEPATITIS B (1 of 3 - 3-dose series) HEPATITIS B (1 of 3 - 3-dose series) [facility] Payers Date Payer Category Payer Medicare [id number] 2022 Medicare AETNA MEDICARE A ETNA MEDICARE PPO [id number] 2022-Present [phone] [address] [place] [address] PPO [id number] 2021 Medicaid [id number] 2021 Medicaid [facility] MEDICAID [id number] 2021-Present [phone] [address] [place] [address] Medicaid [id number] 2017 Unknown Unknown [id number] Social History Date Type Detail Facility Start: 06-02-2017 Tobacco smoking stat us NVIS Never smoked tobacco [facility] Work Phone: Start: 06-02-2017 Tobacco use and exposure Smokeless tobacco non-user [facility] Work Phone: Start: 10-10-2022 Alcohol intake Ex-drinker (finding) [facility] Start: 1975 Sex Assigned At Not on file [facility] History of Present illness Narrative 10-28-2022 Paul Patterson - 10/28/2022 2:15 PM EST Note Date & Type Note Facility 10-28-2022 History of Presen t illness Narrative Radiology Service Progress Note PATIENT NAME: Francisco Cadena DATE OF SERVICE: October 28, 2022 TIME: 1:21 PM PATIENT IDENTITY VERIFICATION COMPLETED USING TWO (2) IDENTIFIERS: Name and Date of confirmed by patient verbally. FALL SCREENING: Has the patient had 2 falls in the last year or 1 fall with injury or currently using an Ambulatory Assistive Device (Walker, Cane, Wheelchair, Crutches, etc.)? No PATIENT GENDER DATA: Male PATIENT RELEVANT IMPLANT DATA REVIEWED: Not Applicable RADIOLOGY DEPARTMENT: General X-ray: Exam(s) Completed: Spine X-Ray(s): Cervical AP / LAT PERIPHERAL IV DATA: Not applicable SIGNED BY: Paul Patterson October 28, 2022 1:21 PM documented in this encounter [facility] History of Past illness Narrative 09-23-2015 Note Date & Type Note Facility documented as of this encounter (statuses as of 10/29/2022) [facility] Summary Purpose Family History No Family History Records FoundNo Family History Records FoundNo Family History Records FoundNo Family History Records FoundNo Family History Records Found Advance Directives No Advanced Directives Records FoundNo Advanced Directives Records FoundNo Advanced Directives Records FoundNo Advanced Directives Records FoundNo Advanced Directives Records Found Additional Source Comments (unrecognized sect ion and content) No Status Records FoundNo Status Records FoundNo Status Records FoundNo Status Records FoundNo Status Records Found INFORMATION SOURCE (unrecogn ized section and content) DATE CREATED AUTHOR AUTHOR'S ORGANIZ ATION 04/04/2018 [facility] DATE CREATED AUTHOR AUTHOR'S ORGANIZ ATION 04/04/2018 [facility] DATE CREATED AUTHOR AUTHOR'S ORGANIZ ATION 01/18/2022 [facility] DATE CREATED AUTHOR AUTHOR'S ORGANIZ ATION 10/18/2022 [facility] Source Comments (unrecognize d section and content) In the event this informatio n is protected by the Federal Confidentiality of Alcohol and Drug Abuse Patient Records regulations: The Federal rules restrict any use of the information to criminally investigate or prosecute any alcohol or drug abuse patient.[facility] Care Teams (unrecognized sec tion and content) FOR RECORDS PERTAINING TO PATIENTS WHO ARE OR HAVE BEEN ENROLLED IN A CHEMICAL DEPENDENCY/SUBSTANCEABUSE PROGRAM, SOME INFORMATION MAY BE OMITTED. This clinical summary was aggregated from multiple sources. Caution should be exercised in using it in the provision of clinical care. This summary normalizes information from multiple sources, and as a consequence, information in this document may materially change the coding, format and clinical context of patient data. In addition, data may be omitted in some cases. CLINICAL DECISIONS SHOULD BE BASED ON THE PRIMARY CLINICAL RECORDS. [facility] [employer] provides no warranty or guarantee of the accuracy or completeness of information in this document.
--- NOTE | 2023-11-01 11:02 | US_ITS ---
INDICATION: pain EXAMINATION: Ultrasound US Scrotum (Contents) TECHNIQUE: Realtime ultrasound of the testicles was performed with grayscale, Color Doppler and spectral Doppler analysis. COMPARISON: No relevant prior comparison study available FINDINGS: RIGHT: TESTIS: The right testicle measures 4.5 x 4.2 x 2.4 cm. Normal in size and echotexture, without focal lesion. COLOR DOPPLER: Normal arterial flow present in the testicle with monophasic waveforms. EPIDIDYMIS: Normal in size and echotexture, without focal lesion measuring about 7 mm. [Normal color Doppler flow pattern in the epididymis. HYDROCELE: Mild to moderate hydrocele. VARICOCELE: None. LEFT: TESTIS: The left testicle measures 4.5 x 2.7 x 2.6 cm. Normal in size and echotexture, without focal lesion. COLOR DOPPLER: Normal arterial flow present in the testicle with monophasic waveforms. EPIDIDYMIS: Normal in size and echotexture, without focal lesion measuring about 1.2 cm. [Slightly increased flow to the left epididymis compared to the right side. HYDROCELE: Mild to moderate hydrocele. VARICOCELE: Varicocele is seen. US/Testicular with Arterial Flow IMPRESSION: 1. No evidence of testicular torsion at the time this examination was performed. 2. Slightly increased flow to the left epididymis compared to the right side which may reflect epididymitis. 3. Mild to moderate bilateral hydroceles. 4. Left varicocele. Electronically Signed: Robert Plasencia MD at 12:23 EST ,
[2023-11-01 12:57] VITALS: BP 131/83; PULSE 88; RESP 14; O2SAT 96
== END 2023-11-01 12:57 | disposition home or self-care (01) ==
PROVIDERS: Emergency Provider Emergency Medicine; PCP Nurse Practitioner; Visit Provider Emergency Medicine
DX: S39.011A Strain of muscle, fascia and tendon of abdomen, initial encounter (principal); E11.9 Type 2 diabetes mellitus without complications; Z79.4 Long term (current) use of insulin; N45.1 Epididymitis; R10.32 Left lower quadrant pain; Z79.84 Long term (current) use of oral hypoglycemic drugs; X58.XXXA Exposure to other specified factors, initial encounter; Y93.72 Activity, wrestling
CPT/HCPCS: 74177; 76870; 80048; 81001; 85025; 93976; 99283; Q9967; A4216

== ENCOUNTER 2023-12-06 08:07 | Day surgery (SDC) | payer MEDICARE, MEDICAID, SELFPAY ==
[2023-12-06] VITALS (10 sets, daily range): BP systolic 113–150; BP diastolic 75–96; PULSE 57–95; RESP 14–16; TEMP 36.3–36.7; O2SAT 92–97; BMI 39.6
--- OUTSIDE RECORDS SUMMARY | 2023-12-06 08:29 | XMS RPT_ITS | CCD ---
Author Name Unknown Address [address] [place] [address] Organization [facility] Care Team Providers Care Control Panel Operator Name Role Phone TERESO COOPER Unavailable Unavailable Marissa Vital Unavailable Unavailable [facility] Unavailable Unavailable Deborah Painting Unavailable Unavailable Deborah Painting Unavailable Unavailable NO REFERRING Unavailable Unavailable Deborah Painting Unavailable Unavailable MARISSA ARTIS Attending Unavailable RENU SHARPE Primary Care Unavailable FRANCI ELIAS Attending Unavailable RENU SHARPE Primary Care Unavailable Renu Sharpe Primary Care Provider [phone] Medications Completed/Discontinued Medications Medication Drug Class(es) Dates [...] Author Start: 10-10-2025 DIABETES SCREEN DIABETES SCREEN [facility] Start: 06-09-2022 Influenza vaccination INFLUENZA (#1) [facility] Start: 06-05-2022 LIPID SCREEN LIPID SCREEN [facility] Start: 2022 COLOGUARD (FIT-DNA) COLOGUARD (FIT-D NA) [facility] Start: 2022 Colonoscopy COLONOSCOPY [facility] Start: 2022 COLORECTAL CANCER SCREENING COLORECTAL CANCER SCREENING [facility] Start: [address] COLONOGRAPHY [facility] Start: 2022 FECAL OCCULT BLOOD FECAL OCCULT BLOO D [facility] Start: 2022 SIGMOIDOSCOPY SIGMOIDOSCOPY [facility] Start: 1996 Urine microalbumin profile DTAP,TDAP ,TD (1 - Tdap) [facility] Start: 1995 HEPATITIS C SCREENING HEPATITIS C SC REENING [facility] Start: 1995 HIV SCREENING HIV SCREENING [facility] Start: 1977 COVID-19 VACCINE (#1) COVID-19 VACCI NE (#1) [facility] Start: 1977 HEPATITIS B (1 of 3 - 3-dose series) HEPATITIS B (1 of 3 - 3-dose series) [facility] Payers Date Payer Category Payer Medicare [id number] 2022 Medicare AETNA MEDICARE A ETNA MEDICARE PPO [id number] 2022-Present [phone] [address] [place] [address] PPO [id number] 2021 Medicaid [id number] 2021 Medicaid [facility] MEDICAID [id number] 2021-Present [phone] [place] [address] Medicaid [id number] 2017 Unknown Unknown [id number] Social History Date Type Detail Facility Start: 06-02-2017 Tobacco smoking stat us UTIS Never smoked tobacco [facility] Work Phone: Start: 06-02-2017 Tobacco use and exposure Smokeless tobacco non-user [facility] Work Phone: Start: 10-10-2022 Alcohol intake Ex-drinker (finding) [facility] Start: 1975 Sex Assigned At Not on file [facility] History of Present illness Narrative 10-28-2022 Paul [...] 2022 1:21 PM documented in this encounter [facility] History of Past illness Narrative 09-23-2015 Note Date & Type Note Facility documented as of this encounter (statuses as of 10/29/2022) [facility] Summary Purpose Family History No Family [...] DATE CREATED AUTHOR AUTHOR'S ORGANIZ ATION 04/04/2018 [facility] DATE CREATED AUTHOR AUTHOR'S ORGANIZ ATION 04/04/2018 [facility] DATE CREATED AUTHOR AUTHOR'S ORGANIZ ATION 01/18/2022 [facility] DATE CREATED AUTHOR AUTHOR'S ORGANIZ ATION 10/18/2022 [facility] Source Comments (unrecognize d section and content) In the event this informatio n is protected by the Federal Confidentiality of Alcohol and Drug Abuse Patient Records regulations: The Federal rules restrict any use of the information to criminally investigate or prosecute any alcohol or drug abuse patient.[facility] Care Teams (unrecognized sec tion and [...] BE BASED ON THE PRIMARY CLINICAL RECORDS. [facility] [employer] provides no warranty or guarantee of the accuracy or completeness of information in this document.
[2023-12-06] MEDS: Lactated Ringers 1,000 ML 15 ML IV (09:02)
--- NOTE | 2023-12-06 10:41 | HP.PCM_ITS ---
HPI - General HPI Narrative KATIA WELLS, is a 48 M who presents of right shoulder arthroscopy, subacromial decompression, biceps tenodesis, distal clavicle excision. No changes to history and physical exam. Shoulder marked. Risks alternatives benefits discussed as well as postop instructions and narcotic counseling. Patient understands wishes to proceed. MR#: [id number] Acct: [id number] Name: KATIA WELLS Rep #: [id number] : 1975 Provider: Dr. Uriel Henry MD Age/Sex: 48/M Location[place] [facility] [place] Status: Signed Intake Vital Signs 08/28/2313:07 09/21/2313:10 Height 6 ft 6 ft Weight: 294 lb 6 oz BMI 39.9 Intake Visit Reasons: RIGHT SHOULDER Accompanied by: Self Is patient in pain?: Yes (6-7) Allergies No Known Allergies Allergy (Verified 09/22/23 14:02) Medications bupropion HCl 150 mg 24 hr tablet, extended release 150 mg PO 05/23/22 [History Confirmed 09/22/23] insulin glargine 100 unit/mL (3 mL) subcutaneous pen (Lantus Solostar U-100 Insulin) 16 unit subcut DAILY 05/23/22 [History Confirmed 09/22/23] metformin 500 mg tablet,extended release 24 hr 1,000 mg PO DAILY 05/23/22 [History Confirmed 09/22/23] semaglutide 1 mg/dose (4 mg/3 mL) subcutaneous pen injector (Ozempic) 1 mg subcut QWEEK 08/28/23 [History Confirmed 09/22/23] PFSH Medical History Acute bronchitis, unspecified Acute sinusitis, unspecified Arthrosis of right acromioclavicular joint COVID-19 Diabetes type 2, controlled Encounter for screening for COVID-19 Impingement of right shoulder Right shoulder pain SLAP lesion of right shoulder Surgical History Hx of arthroscopy S/P excision of lipoma Social History Smoking Status: Never smoker HPI RIGHT SHOULDER Details: This documentation accurately reflects the service provided and the decisions made by me, Dr. Uriel Henry MD 09/22/23 8390. Part of today?s visit was documented by [ ], acting as scribe. KATIA WELLS is a 48 year old M here today for FU R shoulder MRI. Patient continues to experience pain and clicking and popping of the shoulder. 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 Most of this pain is anterolaterally radiating down the upper aspect of the proximal humerus. Ortho Exam General General: Yes no acute distress Neurologic: Yes alert and Yes oriented x3 Psychologic: Yes reasonable and appropriate Right Shoulder Skin/Wound: Yes CDI, No ecchymosis, No erythema and No swelling Testing: Positive Hawkin's, Neer's, Speed's, TTP Biceps, TTP AC Joint, AROM- External Rotation at side 0-60, empty can, Delta, cross arm and belly press normal; Negative Drop Arm or scapular winging SHOULDER: normal motor and sens to ax nerve, and MRU and AIN/PIN active fe 165, passive the same strength fe 4+, er 5/5 pain at ACJ Supplemental Info [facility] Imaging Services [address] [place] [address] Upper Ext Joint Only(Routine) MR#: [id number] Acct: [id number] Name: KATIA WELLS Rep #: [id number] : 1975 M 48 From: Jamey Fitzpatrick MD PCP: DEONTE FELIX Status: REG CLI Study: Upper Ext Joint Only(Routine) Date of Exam: 09/19/23 Exam# [id number] Ordering Dr: Ureil Henry MD STUDY: MRI RIGHT SHOULDER REASON FOR EXAM: Male, 48 years old. Rule out cuff tear, injury with dog, pain, weakness. TECHNIQUE: Standardized fat and water weighted pulse sequences were obtained in all 3 orthogonal planes. COMPARISON: Right shoulder radiographs dated 08/28/2023. FINDINGS: There is mild supraspinatus and subscapularis tendinosis. There is a 5 mm focus of low signal along the bursal surface of the distal infraspinatus tendon (coronal T2 series 5 image 10), compatible with calcification seen with calcific tendinitis. Normal teres minor tendon. Normal supraspinatus muscle. Normal infraspinatus muscle. Normal subscapularis muscle. Normal teres minor muscle. There is a tear of the superior glenoid labrum (coronal T2 series 5 images 12-14). Normal glenohumeral articulation. Normal humeral head and visualized proximal humerus. Normal intracapsular long biceps tendon. Normal rotator interval. There is hypertrophic acromioclavicular arthrosis, with inferior osteophyte formation, with mild effacement of the supraspinatus myotendinous junction (coronal T2 series 5 images 17-19). There is a Type II morphology (curved), with a neutral orientation. There is no subacromial-subdeltoid bursal fluid. Normal visualized coracohumeral and coracoacromial ligaments. Normal quadrilateral space. Normal axillary space. Normal deltoid muscle. Normal trapezius muscle. MRI/Upper Ext Joint Only(Routine) IMPRESSION: Mild supraspinatus and subscapularis tendinosis. Calcific tendinitis of the distal infraspinatus tendon. Hypertrophic acromioclavicular arthrosis, with inferior osteophyte formation, with mild effacement of the supraspinatus myotendinous junction. Superior glenoid labral tear. Electronically Signed: Jamey Fitzpatrick MD at 12:13 EST , Coding Level of Care Code Off vis,est,level 4 Diagnoses Right shoulder pain M25.511 Impingement of right shoulder M25.811 Arthrosis of right acromioclavicular joint M19.011 SLAP lesion of right shoulder S43.431A Assessment and Plan Assessment and Plan (1) Right shoulder pain: Status: Acute Plan: 48 M with MRI evidence of SLAP, ACJ arthrosis and impingement. Patient continues to experience pain. I explained to him his MRI findings showed him the pictures. He has shoulder impingement syndrome as well as pain at the AC j oint chronic positive cross body adduction test and positive Delta's test as well as MRI findings of a SLAP tear with history of large over 100 pound dog pulling on his arm. I explained to him his options rest ice doing nothing anti- inflammatories physical therapy cortisone injections or surgery. In my hands that would be in the form of right shoulder arthroscopy, subacromial decompression, biceps tenodesis, distal clavicle excision. Typically with SLAP tears going ahead with the repair would result in unacceptably high rates of stiffness in a patient over 40 and my interpretation of the literature. He would like to go ahead with surgery. He does have an elevated hemoglobin A1c at some point he does have diabetes non-smoker but I will still get him to see his family doctor for preoperative clearance. Pros and cons risks and benefits were discussed with the patient including but not limited to infection, pain, stiffness, bleeding, damage to surrounding structures, neurovascular injury, recurrence or retear, failure or wear of hardware or fixation, instability, fracture, deep vein thrombosis and pulmonary embolism, anesthetic risks, , patient dissatisfaction, need for further surgery and other risks. Patient understood and wished to proceed with surgery, and signed the informed consent documentation. (2) Impingement of right shoulder: Status: Acute (3) Arthrosis of right acromioclavicular joint: Status: Acute (4) SLAP lesion of right shoulder: Status: Acute [facility] Medical History (Updated 11/21/23 @ 13:31 by Dagmar Pascual) Acute bronchitis, unspecified Acute sinusitis, unspecified Anxiety Arthritis Arthrosis of right acromioclavicular joint BiPAP (biphasic positive airway pressure) dependence COVID-19 Depression Diabetes type 2, controlled Dietary restriction Encounter for screening for COVID-19 Impingement of right shoulder Injury of head and neck Loss of hearing Migraine headache PTSD (post-traumatic stress disorder) Right shoulder pain Shortness of breath on exertion SLAP lesion of right shoulder Wears glasses Home Medications bupropion HCl 150 mg 24 hr tablet, extended release 150 mg PO DAILY 08/15/22 [History Last Taken Unknown] metformin 500 mg tablet,extended release 24 hr 1,000 mg PO DAILY 05/23/22 [History Last Taken Unknown] semaglutide 1 mg/dose (4 mg/3 mL) subcutaneous pen injector (Ozempic) 1 mg subcut QWEEK 08/28/23 [History Last Taken Unknown] empagliflozin 25 mg tablet 25 mg PO DAILY 11/14/23 [History Last Taken Unknown] fluoxetine 60 mg tablet 60 mg PO DAILY 11/14/23 [History Last Taken Unknown] Allergy/AdvReac Type Severity Reaction Status Date / Time No Known Allergies Allergy Verified 12/06/23 08:31 Surgical History Hx of arthroscopy S/P excision of lipoma Social History (Updated 11/14/23 @ 13:37 by Genesis Machuca) Smoking Status: Never smoker alcohol intake: never substance use type: does not use Vital Signs Vital Signs Vital Signs: 12/06/23 08:36 12/06/23 08:36 Temperature 98.1 F Temperature Source Temporal Pulse Rate 81 Respiratory Rate 16 Respiratory Pattern Normal Blood Pressure 129/82 H Blood Pressure Mean 97 Blood Pressure Source Monitor Blood Pressure Position Semi-Fowlers Blood Pressure Location Left Arm Pulse Ox 97 Oxygen Delivery Method Room Air Weight Weight: 284 lb 6.341 oz Body Mass Index (BMI) 39.6
[2023-12-06] MEDS: Epinephrine (1 mg/ml) 1 MG/ML VIAL (11:13)
[2023-12-06 11:54] LABS: Bedside Glucose 142 mg/dL (74-106)
[2023-12-06] MEDS: Cefazolin 3 GM in 0.9% Normal Saline (100mL Bag) 100 ML IV (12:25)
--- NOTE | 2023-12-06 13:56 | PCM.OPRPT ---
Problems Associated Problem List Diagnoses (1) SLAP lesion of right shoulder: (2) Arthrosis of right acromioclavicular joint: (3) Impingement of right shoulder: (4) Right shoulder pain: Report of Operation Date of Procedure: 12/06/23 Pre-Operative Diagnosis: Right shoulder impingement syndrome SLAP tear and AC joint arthrosis Post-Operative Diagnosis: Same Surgery/Procedure Performed:: Right shoulder arthroscopy subacromial decompression distal clavicle excision separate open incision and subpectoral biceps tenodesis separate open incision Surgeon: Uriel Henry Type of Anesthesia: Block,Regional and General Anesthesiologist: Randy Lebron Estimated Blood Loss (mL): 30 Description of Procedure: Patient brought the operating room theater. Placed supine on the table. Administered general anesthetic. 3 g IV Ancef administered prior to the start of the case. Transferred right side up lateral decubitus beanbag positioner axillary roll placed SCDs on the legs. All bony prominences padded. Upper extremity prepped and draped in the usual sterile treatments. Preoperative timeout prior to starting the case to confirm the site patient and the surgery. 10 pounds of inline traction with the arm in 30 degrees of abduction was used. Began by inserting the arthroscope through a standard posterior portal. Did a diagnostic arthroscopy. Rotator cuff tendons were normal. Minor amount grade 1 cartilage fraying glenoid humeral head appeared normal. The joint was extremely tight. Biceps had a type II SLAP tear. No loose bodies axillary recess appeared normal. No other significant findings. I made an inside-out spinal needle localized portal through the rotator interval just posterior to the biceps tendon. Performed a biceps tenotomy for future plan of biceps tenodesis. Then took pictures throughout the case saved them on system. Placed the scope in the subacromial space. There is moderate amount of subacromial bursitis inflammatory nature. I performed a bursectomy to the gutters. I performed a subacromial decompression this was extremely tight at the anterolateral aspect of the acromion I was barely able to get a elijah instrument into the subacromial space after I flatten this down to flat margins as best as I was able to; again this was extremely tight and had quite a bit of downsloping anterolaterally. I removed about 4mm of undersurface acromion to flat margins. I originally planned to do the distal clavicle excision arthroscopically but again this was extremely tight and the patient had very large anatomy and impossible to get there with the arthroscope. I took pictures throughout I probed the rotator cuff tendon this was intact. I removed the arthroscope. I made a longitudinal incision overlying the anterior aspect of the AC joint. Dissection down through skin and subcutaneous tissue achieved meticulous hemostasis. Incised along the anterior aspect of the AC joint ensuring to keep the posterior and superior ligaments intact. I did a distal clavicle excision using a high-speed saw with the handpiece for about 3 mm small wafer of bone I was able to get the suction tip as well as my little finger inside there for a good space at the AC joint without impingement. Wound thoroughly irrigated. Next I turned my attention to the biceps tenodesis. I made a small longitudinal 1.5 inch incision centered on the upper proximal medial aspect of the humerus overlying the long head of biceps tendon. Carried the dissection down through skin and subcutaneous tissue to meticulous hemostasis. I did this just distal to the pectoralis major insertion and medial to the short head of the biceps. Identified long head biceps deliver this to the incision. I shorten the tendon. I used the Arthrex loop suture looped around and a luggage tag configuration and passed the suture distally from anterior to posterior to lock configuration using the tension tight Arthrex button with #5 braided suture. I placed the suture through the button. I drilled unicortical hole irrigated any bone debris. I passed the button into the unicortical hole and delivered the tendon to bone. This knotless configuration and solid repair sutures cut short. This was irrigated. Incisions closed with #2-0 Vicryl and skin with 3-0 Monocryl. Skin cleaned 5 by dressing followed application of Steri-Strips Adaptic 4 x 4 gauze ABD pads and tape and abduction pillow sling. Patient woken up from a general anesthetic transferred off the operating table taken postanesthetic care unit in stable addition. All sponge needle answer counts were correct. cpt 28516,69292, 17910? Complications none Admit VTE Documentation VTE Present on Admission: No VTE Mechan Device Prophylaxis: SCD's VTE Pharm Prophylaxis ordered?: No Reason prophylaxis not ordered:: Treatment Not Indicated Procedures Musculoskeletal 20xxx-29xxx: Other Procedure See Report
--- NOTE | 2023-12-06 14:08 | DCINST_ITS ---
Discharge Instructions Diet Discharge Diet: No restrictions Activity Ice area for (Minutes): 10 Lifting Restrictions: pendulums only, no lifting over 1 pound, ok for hand use, Additional Activity Instructions:: remove sling 4x/day Dressing / Incision Call your doctor if your incision/area has: Continuous Slow Oozing, Sudden Increased Bleeding, Increased Pain/ Swelling, Increased Redness, Foul Smelling Discharge and Swelling at the incision site Remove Dressing in: leave in place till F/U Follow Up Care Please Follow Up With: Uriel Henry MD When: 2 days Test Results: Test results from this visit will be discussed in further detail at your follow- up appointment, if applicable. Discharge Plan Admission Attending Provider: Uriel Henyr Primary Care Provider: DEONTE FELIX Instructions Patient Instructions: After Shoulder Arthroscopy Discharge Orders/Prescriptions Prescriptions: New oxycodone-acetaminophen [Percocet] 5-325 mg tablet 1 - 2 tab PO Q4H MDD 6 PRN (Reason: pain) 5 Days Qty: 30 0RF No Action metformin 500 mg tablet extended release 24 hr 1,000 mg PO DAILY bupropion HCl 150 mg tablet extended release 24 hr 150 mg PO DAILY Ozempic 1 mg/dose (4 mg/3 mL) pen injector 1 mg subcut QWEEK fluoxetine 60 mg tablet 60 mg PO DAILY empagliflozin 25 mg tablet 25 mg PO DAILY Referrals / Follow Up: Uriel Henry MD [Med Staff - Active Staff] - DEONTE FELIX CRNP [Primary Care Provider] - Disposition Disposition (needs filled in before D/C Order can be placed): Home, Self Care
[2023-12-06 14:35] LABS: Bedside Glucose 154 mg/dL (74-106)
[2023-12-06] MEDS: Oxycodone/Apap 5/325 Tablet PO (15:42)
== END 2023-12-06 16:34 | disposition home or self-care (01) ==
LOC: SDC 08:08 → AC 08:09
PROVIDERS: PCP Nurse Practitioner; Referring Provider Orthopaedic Surgery Sports Medicine; Visit Provider Orthopaedic Surgery Sports Medicine
PROC: (CPT 29805; principal; 2023-12-06 09:50)
DX: M75.41 Impingement syndrome of right shoulder (principal); E11.9 Type 2 diabetes mellitus without complications; S43.431A Superior glenoid labrum lesion of right shoulder, initial encounter; M19.011 Primary osteoarthritis, right shoulder; M75.80 Other shoulder lesions, unspecified shoulder; M77.9 Enthesopathy, unspecified; Z86.16 Personal history of COVID-19; Z79.84 Long term (current) use of oral hypoglycemic drugs; Z87.19 Personal history of other diseases of the digestive system; F32.A Depression, unspecified
CPT/HCPCS: 29826; 23120; 23430; 01716; 64450; 82962; C1713; J7120; J2405

== ENCOUNTER 2024-02-23 08:00 | Outpatient (RCR) | payer MEDICARE, MEDICAID, SELFPAY ==
--- NOTE | 2023-12-21 11:11 | HP.PTEVAL_ITS ---
Patient's Visit Information Visit Information Visit Information: KATIA WELLS is a 48 year old M referred to Physical Therapy by Dr. Uriel Henry MD with a diagnosis of R SLAP lesion, SAD and Biceps Tenodesis (DOS: 12/06/23). Date of Evaluation: 12/21/23 Physical Therapist: Mayo Salazar DPT Visit Plan Frequency: 3x /Week Duration: 2 Months Plan: -PROM and AAROM to FULL shoulder ROM by 01/04/24 -grade 1 and 2 post GH joint mobs -scar mobilization and STM to pecs, UT, neck, delt, and biceps -AROM, isometrics, and LIGHT band work starting 01/09/2024 -Progress scapular, bicep, delt, and IR/ER strengthening as tolerated AFTER 01/14/2023 Pt would like to return to working out, should be appropriate 2-3 months out from sx (based on symptoms), ensure strengthening becomes more gym related near end phases of rehab to provide appropriate challenge of strength (HEP: AAROM in all directions, scap retraction) Subjective Subjective: Pt presents to PT s/p R shoulder surgery (Sub acromial decompression and biceps tenodesis). Last February, pt was helping his dog into car and she slipped, he then had instant burning in entire R arm, very sore afterwards and eventually had surgery on 12/06/23. 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 Pt is able to sleep on L side instead of sleeping on his back, pretty sore and stiff, but he feels ROM and pain have decreased with time. Pt had tingling all down arm early on post-op, but has subsided, still having some discomfort in proximal bicep and shoulder. Dr. Henry gave pt a few low level shoulder exercises (pendulums) and pt feels they help. Able to perform all ADLs indep, but with increase time, having issues reaching back behind to flush toilet. Pt wants to get back to mowing, landscaping, and doing house projects. He also wants to return to working out and being able to confidently carry things (i.e. wrestling bags) with less pain. Pt not using sling, uses pain medication occasionally at night, and feels that ice machine helps with pain. Pain Right Shoulder: Pain Intensity (Out of 10): 5 Pain Intensity Range: 4 and 9 Objective Objective: AROM: R shoulder - abd 70deg, flex 85deg, IR lateral portion iliac crest, ER lateral portion of occiput with stiffness PROM: R shoulder - flex and abd >160 deg with some pain at acromion at end range *DNT MMT d/t early on in phase 1 healing JOINT PLAY: some muscular restrictions and excess scar tissue near incisions that limit ROM/cause pain, but no capsular restrictions PALPATION: tightness in R bicep, supra/UT, pecs, lats, increased scar tissue under incisions OBSERVATIONS: some puckering of biceps incision, incisions looked clean, dry, and skin intact, some superficial feelings of burning with pressure Pt educated to avoid loading biceps and to begin with AAROM. Able to begin strengthening at 6 weeks (DOS: 12/06/23) and sample protocol in folder. Pt pretty sore with movement, but demo's good understanding of healing timeline and has excellent potential to reach full ROM and begin strengthening on schedule. Balance/Special Test Scores Quick DASH Score: 61.3625 Goals Goal 1:: Pt will achieve full R shoulder AROM Goal Time Frame: 2-4 Weeks Goal 2:: Pt will score <23 on QUICK DASH Goal Time Frame: 6-8 Weeks Goal 3:: Pt will achieve symmetrical UE strength (including biceps) Goal Time Frame: 8-12 Weeks Goal 4:: Pt will be able to return to working out with <2/10 pain Goal Time Frame: 8-12 Weeks Goal 5:: Pt will be able to perform all yard work duties with <2/10 pain Goal Time Frame: 6-8 Weeks Rehabilitation Potential Physical Therapy Diagnosis: Pt presents to PT with R shoulder hypomobility, pain, weakness, and decreased ROM secondary to SAD and biceps tenodesis 2 weeks ago. Pt would benefit from PT services to address pain, muscular tightness, ROM, and R shoulder strength. Rehabilitation Potential: Excellent Anticipated Interventions Patient/Client Instruction: Educate patient on: Risk Factors For the Purpose of:: To decrease pain, To decrease swelling/inflammation, To increase ROM, To improve nutrient delivery to tissue, To increase oxygenation perfusion, To improve muscle performance and motor function, To improve ability to perform ADL's, To increase tolerance to activity/condition/position, To improve performance and independence with ADL's, To improve ability of physical actions for home/community/work/leisure, To improve health of tissue, To decrease soft tissue restriction, To increase flexibility/ROM, To improve safety with gait, To assume or resume ADL's, To reduce risk of recurrence, To foster healthy habits, To prevent re-injury, To improve ability to perform tasks related to life management and To improve tolerance to ADL's Therapeutic Exercise to Include: Strength training, Body mechanics, Postural training, Flexibilty training, Passive ROM, Active ROM and Scapular Strength/Stabilization For the Purpose of:: To decrease pain, To decrease swelling/inflammation, To increase ROM, To improve nutrient delivery to tissue, To increase oxygenation perfusion, To improve muscle performance and motor function, To improve ability to perform ADL's, To increase tolerance to activity/condition/position, To improve performance and independence with ADL's, To improve ability of physical actions for home/community/work/leisure, To improve health of tissue, To decrease soft tissue restriction, To increase flexibility/ROM, To assume or resume ADL's, To reduce risk of recurrence, To foster healthy habits, To improve self management, To improve ability to perform tasks related to life management and To improve tolerance to ADL's Manual Therapy Techniques to Include: Mobilization, Passive ROM and Soft tissue mobilization For the Purpose of:: To decrease pain, To decrease swelling/inflammation, To increase ROM, To improve health of tissue, To decrease soft tissue restriction, To increase flexibility/ROM, To improve ability to perform tasks related to life management and To improve tolerance to ADL's TENS: Yes Cryotherapy (ice pack, ice massage): Yes For the Purpose of:: To decrease pain and To decrease swelling/inflammation Text: Thank you for the opportunity to evaluate your patient. For Medicare and Medicare HMO plans, please review the plan of care and approve it. It will need to be FAXED BACK to us at [phone] for Medicare purposes. For Medicare only, by signing this I certify the plan of care. Please let me know if there are questions or concerns regarding this plan of ca re. Physician Signature: Date:
== END 2024-02-23 19:00 | disposition home or self-care (01) ==
LOC: PT 08:00
PROVIDERS: PCP Nurse Practitioner; Referring Provider Orthopaedic Surgery Sports Medicine; Visit Provider Orthopaedic Surgery Sports Medicine
DX: M25.811 Other specified joint disorders, right shoulder (principal); M19.011 Primary osteoarthritis, right shoulder; S43.431D Superior glenoid labrum lesion of right shoulder, subsequent encounter
CPT/HCPCS: 97110; 97140; 97161